=== PATIENT | male | born 1965 | race Hispanic/Latino ===

== ENCOUNTER 2021-01-02 17:29 | Inpatient (IN) | payer SELFPAY ==
[2021-01-02] MEDS ORDERED: ACETAMINOPHEN 500 MG TAB ONE (19:37)
[2021-01-02] MEDS ORDERED: ONDANSETRON 4 MG/2 ML VIAL ONE (20:53)
[2021-01-02] MEDS ORDERED: PIPER/TAZO/NS 3.375gm 3.375 GM/100 ML BAG ONE (20:53)
[2021-01-02] MEDS ORDERED: NA CHLORIDE 0.9% 1,000 ML ONE (20:53)
[2021-01-02 21:06] LABS: Absolute Lymphocytes (CBC) 1.3 K/uL (0.7-4.9); Basophils % 0.4 % (0-1.3); Hematocrit 41.9 % (39.6-49.0); Lymphocytes % 7.4 % (15.3-44.8); MPV 9.2 fL (7.6-11.3); RBC Red Blood Cell Count 4.53 M/uL (4.33-5.43)
[2021-01-02 21:09] LABS: Protime INR 1.37
--- NOTE | 2021-01-02 21:20 | RAD REPORT ---
EXAM DESCRIPTION: RAD - Chest Single View - 01/02/2021 9:12 pm CLINICAL HISTORY: FEVER COMPARISON: No comparisons FINDINGS: No evidence of edema or pneumonia. The heart size is within normal limits.No acute osseous abnormality. No significant pleural effusions or pneumothorax. IMPRESSION: No acute cardiopulmonary disease.
[2021-01-02 21:21] LABS: Albumin 3.5 g/dL (3.4-5.0); Bilirubin Direct 0.3 mg/dL (0-0.2); Bilirubin Total 1.3 mg/dL (0.2-1.0); Potassium 3.9 mmol/L (3.5-5.1); Protein, Total 7.8 g/dL (6.4-8.2)
--- NOTE | 2021-01-02 21:51 | RAD REPORT ---
EXAM DESCRIPTION: US - Abdomen Exam Limited - 01/02/2021 9:32 pm CLINICAL HISTORY: ABD PAIN COMPARISON: No comparisons FINDINGS: There is a gallstone near the gallbladder neck. No gallbladder wall thickening is identifi ed. No pericholecystic fluid. There is some mild fatty sparing along the gallbladder fossa. Negative sonographic Deleon's sign. No biliary ductal dilatation. IMPRESSION: Cholelithiasis but no sonographic evidence of acute cholecystitis.
--- NOTE | 2021-01-02 22:10 | ER ---
Nurse's Notes [facility] Name: Rony Huggins Age: 55 yrs Sex: Male : 1965 Arrival Date: 01/02/2021 Time: 17:35 Bed External Waiting Private MD: Diagnosis: Calculus of gallbladder with acute cholecystitis without obstruction Presentation: 01/02 19:16 Chief complaint: Patient states: he was seen at [place] yesterday and diagnosed with bb kidney stones told to go to the ED if symptoms worsen and the pain has worsened. Coronavirus screen: At this time, the client does not indicate any symptoms associated with coronavirus-19. Ebola Screen: No symptoms or risks identified at this time. Initial Sepsis Screen: Does the patient meet any 2 criteria? No. Patient's initial sepsis screen is negative. Does the patient have a suspected source of infection? No. Patient's initial sepsis screen is negative. Risk Assessment: Do you want to hurt yourself or someone else? Patient reports no desire to harm self or others. Onset of symptoms was January 02, 2021. 19:16 Method Of Arrival: Ambulatory bb 19:16 Acuity: ALPA 3 bb Historical: - Allergies: 19:18 No Known Allergies; bb - Immunization history:: Adult Immunizations unknown. - Social history:: Smoking status: unknown. Screenin/10 00:00 Abuse screen: Denies threats or abuse. Nutritional screening: No deficits noted. em Tuberculosis screening: No symptoms or risk factors identified. Fall Risk None identified. Assessment: 01/02 20:08 General: Appears in no apparent distress. uncomfortable, Behavior is calm, cooperative. vg1 Pain: Complains of pain in epigastric area and right upper quadrant Pain currently is 7 out of 10 on a pain scale. Noted to be grimacing, guarding. Neuro: Level of Consciousness is awake, alert, obeys commands, Oriented to person, place, time, situation. Cardiovascular: Patient's skin is warm and dry. Respiratory: Airway is patent Respiratory effort is even, unlabored. GI: Bowel sounds present X 4 quads. Abdomen is tender to palpation in epigastric area and right upper quadrant Patient currently denies nausea, vomiting. : No signs and/or symptoms were reported regarding the genitourinary system. EENT: No signs and/or symptoms were reported regarding the EENT system. Derm: Skin is intact, is healthy with good turgor. Musculoskeletal: Circulation, motion, and sensation intact. 21:14 Reassessment: US at bedside. vg1 22:09 Reassessment: Patient appears in no apparent distress at this time. No changes from vg1 previously documented assessment. Patient and/or family updated on plan of care and expected duration. Pain level reassessed. Patient is alert, oriented x 3, equal unlabored respirations, skin warm/dry/pink. 01/03 00:00 Reassessment: Patient appears in no apparent distress at this time. Patient and/or jb4 family updated on plan of care and expected duration. Pain level reassessed. Patient is alert, oriented x 3, equal unlabored respirations, skin warm/dry/pink. Vital Signs: 01/02 19:16 BP 142 / 88; Pulse 104; Resp 18 S; Temp 101.1(O); Pulse Ox 98% on R/A; Weight 90.72 kg bb (R); Height 5 ft. 7 in. (170.18 cm) (R); Pain 10/10; 20:13 BP 126 / 84; Pulse 103; Resp 16; Pulse Ox 98% ; vg1 20:58 BP 114 / 77; Pulse 93; Resp 93; Temp 99.8; Pulse Ox 98% ; vg1 19:16 Body Mass Index 31.32 (90.72 kg, 170.18 cm) bb ED Course: 17:35 Patient arrived in ED. mr 19:18 Triage completed. bb 19:18 Arm band placed on Patient placed in waiting room, Patient notified of wait time. bb Antipyretics given from triage as ordered by an ER provider. Family accompanied patient. 19:46 Francisco Javier Jolley PA is PHCP. cp 19:46 Francisco Javier Chapman MD is Attending Physician. cp 19:52 Elsa Burr RN is Primary Nurse. vg1 20:49 Inserted saline lock: 20 gauge in right antecubital area, using aseptic technique. vg1 Blood collected. 20:49 Initial lab(s) drawn, by ks, sent to lab. First set of blood cultures drawn by me. vg1 21:04 COVID swab sent to lab. vg1 21:05 Second set of blood cultures drawn by me. vg1 21:11 XRAY Chest (1 view) In Process Unspecified. EDMS 21:32 US Abdomen Limited: RUQ/epigastric In Process Unspecified. EDMS 22:08 Steven Cross MD is Hospitalizing Provider. cp 22:10 Report given to Rasheeda RIVERA. vg1 01/03 00:00 Patient has correct armband on for positive identification. Bed in low position. Call jb4 light in reach. Side rails up X 1. 01:14 No provider procedures requiring assistance completed. Patient transferred, IV remains em in place. Administered Medications: 01/02 19:16 Drug: Tylenol 1000 mg Route: PO; bb 22:10 Follow up: Response: No adverse reaction; Temperature is decreased vg1 21:00 Drug: NS 0.9% 1000 ml Route: IV; Rate: 1 bolus; Site: right antecubital; vg1 22:10 Follow up: IV Status: Completed infusion; IV Intake: 1000ml vg1 21:01 Drug: Zofran (Ondansetron) 4 mg Route: IVP; Site: right antecubital; vg1 22:10 Follow up: Response: No adverse reaction vg1 21:07 Drug: Zosyn (piperacillin-tazobactam) 3.375 grams Route: IVPB; Infused Over: 60 mins; vg1 Site: right antecubital; 22:10 Follow up: IV Status: Completed infusion; IV Intake: 100ml vg1 01/03 00:01 Drug: morphine 4 mg Route: IVP; Site: right antecubital; em Intake: 01/02 22:10 IV: 1000ml; Total: 1000ml. vg1 22:10 IV: 100ml; Total: 1100ml. vg1 Outcome: 22:09 Decision to Hospitalize by Provider. cp 01/03 00:00 Admitted to ER Hold. Please see [facility] for further documentation. jb4 Condition: stable Discharge instructions given to patient, Instructed on the need for admit, Demonstrated understanding of instructions. 17:11 Patient left the ED. iw Signatures: Dispatcher [employer] SHAYNE TavoAniya mr AnnLeoncio, RN RN Zainab Sharif, RN NICOLE bb Nicole Yousif RN RN iw Francisco Javier Jolley PA PA cp Tristian Rider RN RN jb4 Elsa Burr RN RN vg1
--- NOTE | 2021-01-02 22:10 | EDPHYS ---
Physician Documentation [facility] Name: Rony Huggins Age: 55 yrs Sex: Male : 1965 Arrival Date: 01/02/2021 Time: 17:35 Bed External Waiting Private MD: ZULEMA Physician Francisco Javier Chapman HPI: 01/02 20:05 This 55 yrs old Male presents to ER via Ambulatory with complaints of cp Abdominal Pain. 20:05 The patient presents with right side abdomen. Onset: The symptoms/episode cp began/occurred yesterday. The symptoms do not radiate. Associated signs and symptoms: Pertinent negatives: constipation, diarrhea, testicular pain, vomiting. The patient has been recently seen by a physician: in [place], yesterday, with similar presenting complaints, and apparently given a diagnosis of cholelithiasis, lab tests were done, an ultrasound was done, CT scan was done. Historical: - Allergies: 19:18 No Known Allergies; bb - Immunization history:: Adult Immunizations unknown. - Social history:: Smoking status: unknown. ROS: 20:06 Eyes: Negative for injury, pain, redness, and discharge. cp 20:06 Constitutional: Negative for body aches, chills, fever, poor PO intake. 20:06 ENT: Negative for ear pain, sore throat, difficulty swallowing, difficulty handling secretions. 20:06 Cardiovascular: Negative for chest pain. 20:06 Respiratory: Negative for cough, shortness of breath, wheezing. 20:06 Abdomen/GI: Positive for abdominal pain, Negative for vomiting, diarrhea, constipation. 20:06 Skin: Negative for rash. 20:06 Neuro: Negative for altered mental status, headache, weakness. 20:06 All other systems are negative. Exam: 20:07 Constitutional: The patient appears in no acute distress, alert, awake, cp non-diaphoretic, non-toxic, well developed, well nourished. 20:07 Head/Face: Normocephalic, atraumatic. cp 20:07 Eyes: Periorbital structures: appear normal, Conjunctiva: normal, no exudate, no cp injection, Sclera: no appreciated abnormality, Lids and lashes: appear normal, bilaterally. 20:07 ENT: External ear(s): are unremarkable, Nose: is normal, Mouth: Lips: moist, Oral mucosa: pink and intact, moist, Posterior pharynx: Airway: no evidence of obstruction, patent. 20:07 Neck: ROM/movement: is normal, is supple, without pain, no range of motions limitations. 20:07 Chest/axilla: Inspection: normal, Palpation: is normal, no crepitus, no tenderness. 20:07 Cardiovascular: Rate: tachycardic, Rhythm: regular, Heart sounds: murmur, not appreciated, Edema: is not appreciated. 20:07 Respiratory: the patient does not display signs of respiratory distress, Respirations: normal, no use of accessory muscles, no retractions, labored breathing, is not present, Breath sounds: are clear throughout, no decreased breath sounds, no stridor, no wheezing. 20:07 Abdomen/GI: Inspection: abdomen appears normal, Bowel sounds: active, all quadrants, Palpation: soft, in all quadrants, severe abdominal tenderness, in the right upper quadrant, voluntary guarding, is elicited in the right upper quadrant. 20:07 Back: pain, that is moderate, of the mid back area, ROM is painful, with all movement. 20:07 Skin: no rash present. 20:07 Neuro: Orientation: to person, place \T\ time. Mentation: is normal, Motor: moves all fours, strength is normal. Vital Signs: 19:16 BP 142 / 88; Pulse 104; Resp 18 S; Temp 101.1(O); Pulse Ox 98% on R/A; Weight 90.72 kg bb (R); Height 5 ft. 7 in. (170.18 cm) (R); Pain 10/10; 20:13 BP 126 / 84; Pulse 103; Resp 16; Pulse Ox 98% ; vg1 20:58 BP 114 / 77; Pulse 93; Resp 93; Temp 99.8; Pulse Ox 98% ; vg1 19:16 Body Mass Index 31.32 (90.72 kg, 170.18 cm) bb MDM: 19:47 Patient medically screened. cp 21:00 Differential diagnosis: cholecystitis, Cholelithiasis, pancreatitis, Peptic Ulcer cp Disease, Perf. Duodenal Ulcer, Perf. Gastric Ulcer, Ureterolithiasis, urinary tract infection, sepsis. 22:00 Physician consultation: Steven Cross MD was called at 22:00, was contacted at 22:00, cp regarding admission, to the medical/surgical unit. patient's condition, would like medications started, Zosyn. 22:00 Data reviewed: vital signs, nurses notes, lab test result(s), radiologic studies, cp ultrasound, I have discussed the patient's presentation/case with the attending Emergency Department Physician; and as a result, I will admit patient. 01/02 20:14 Order name: Basic Metabolic Panel 01/02 20:14 Order name: CBC with Diff 01/02 20:14 Order name: Hepatic Function cp 01/02 20:14 Order name: Lipase cp 01/02 20:14 Order name: Lactate; Complete Time: 21:22 cp 01/02 20:14 Order name: PT-INR; Complete Time: 21:52 cp 01/02 20:14 Order name: Ptt, Activated; Complete Time: 21:52 cp 01/02 20:14 Order name: Urine Microscopic Only cp 01/02 20:14 Order name: Procalcitonin; Complete Time: 21:52 cp 01/02 20:14 Order name: Blood Culture Adult (2) 01/02 20:15 Order name: Basic Metabolic Panel; Complete Time: 21:22 EDOK 01/02 21:22 Interpretation: Normal except: BUN 21; GFR 75. 01/02 20:15 Order name: CBC with Automated Diff EDOK 01/02 21:25 Interpretation: WBC 17.50; JOVITA% 86.3; LYM% 7.4; NEUT A 15.1. 01/02 20:15 Order name: Liver (Hepatic) Function; Complete Time: 21:22 EDOK 01/02 21:22 Interpretation: Normal except: BILIT 1.3; BILID 0.3; GLOB 4.3; A/G 0.8. 01/02 20:14 Order name: US Abdomen Limited: RUQ/epigastric; Complete Time: 21:52 cp 01/02 20:15 Order name: Lipase; Complete Time: 21:22 EDMS 01/02 20:36 Order name: XRAY Chest (1 view); Complete Time: 21:22 cp 01/02 21:08 Order name: Manual Differential EDOK 01/02 23:02 Order name: SARS-COV-2 RT PCR EDMS 01/02 23:04 Order name: Basic Metabolic Panel EDMS 01/02 23:04 Order name: Basic Metabolic Panel EDMS 01/02 23:04 Order name: Lipase EDMS 01/02 23:04 Order name: Lipase EDMS 01/02 23:04 Order name: Liver (Hepatic) Function EDMS 01/02 23:04 Order name: CBC with Automated Diff EDMS 01/02 23:04 Order name: CBC with Automated Diff EDMS 01/02 23:04 Order name: Liver (Hepatic) Function EDMS 01/03 16:08 Order name: Glucose, Ancillary Testing EDMS 01/02 20:14 Order name: IV Saline Lock; Complete Time: 20:56 cp 01/02 20:14 Order name: Labs collected and sent; Complete Time: 20:56 cp 01/02 20:14 Order name: NPO; Complete Time: 20:23 cp 01/02 20:36 Order name: EKG; Complete Time: 20:36 cp 01/02 20:36 Order name: EKG - Nurse/Tech cp 01/02 23:04 Order name: NPO EDMS Administered Medications: 19:16 Drug: Tylenol 1000 mg Route: PO; bb 22:10 Follow up: Response: No adverse reaction; Temperature is decreased vg1 21:00 Drug: NS 0.9% 1000 ml Route: IV; Rate: 1 bolus; Site: right antecubital; vg1 22:10 Follow up: IV Status: Completed infusion; IV Intake: 1000ml vg1 21:01 Drug: Zofran (Ondansetron) 4 mg Route: IVP; Site: right antecubital; vg1 22:10 Follow up: Response: No adverse reaction vg1 21:07 Drug: Zosyn (piperacillin-tazobactam) 3.375 grams Route: IVPB; Infused Over: 60 mins; vg1 Site: right antecubital; 22:10 Follow up: IV Status: Completed infusion; IV Intake: 100ml vg1 01/03 00:01 Drug: morphine 4 mg Route: IVP; Site: right antecubital; em Disposition: 01/04 07:50 Co-signature as Attending Physician, Francisco Javier Chapman MD I agree with the assessment and codi plan of care. Disposition Summary: 01/02/21 22:09 Hospitalization Ordered Hospitalization Status: Inpatient Admission cp Provider: Steven Cross cp Condition: Stable cp Problem: new cp Symptoms: have improved cp Bed/Room Type: Standard cp Location: [facility] ER HOLD(01/03/21 00:19) cg Room Assignment: ERHOLD-(01/03/21 00:19) cg Diagnosis - Calculus of gallbladder with acute cholecystitis without obstruction cp Forms: - Medication Reconciliation Form cp - SBAR form cp Signatures: Dispatcher [employer] EDFrancisco Javier Lopez MD MD cha Munoz, Edgar, RN RN Zainab Guerra RN RN Francisco Javier Pearl PA PA Lauren Burr RN RN Elsa Burr RN RN vg1 Corrections: (The following items were deleted from the chart) 01/02 22:02 20:15 CORONAVIRUS+MR.LAB.BRZ ordered. [facility] 01/03 00:19 01/02 22:09 Telemetry/MedSurg (Inpatient) [facility] 01/03 00:19 01/02 22:09 cp cg
[2021-01-02 22:24] LABS: Blood Morphology Comment NOT SEEN (NOT SEEN); Platelet Estimate ADEQ
[2021-01-02] MEDS ORDERED: ACETAMINOPHEN 500 MG TAB PO PRN (22:52)
[2021-01-02] MEDS ORDERED: MORPHINE 4 MG/ML SYR IV PRN (22:52)
[2021-01-02] MEDS ORDERED: ONDANSETRON 4 MG/2 ML VIAL IV PRN (22:52)
[2021-01-03] MEDS ORDERED: MORPHINE 2 MG/ML SYR ONE (00:21)
[2021-01-03 01:37] VITALS: BMI 31.3
[2021-01-03] MEDS ORDERED: PIPER/TAZO/NS 3.375gm 3.375 GM/100 ML BAG IVPB SCH (03:00)
[2021-01-03] MEDS ORDERED: NA CHLORIDE 0.9% 250 ML ONE (04:07)
[2021-01-03] MEDS ORDERED: PIPERACIL/TAZO 3.375 GM VIAL IV ONE (04:07)
[2021-01-03 05:32] LABS: Absolute Lymphocytes (CBC) 1.2 K/uL (0.7-4.9); Basophils % 0.5 % (0-1.3); Hematocrit 38.3 % (39.6-49.0); Lymphocytes % 7.3 % (15.3-44.8); MPV 9.3 fL (7.6-11.3); RBC Red Blood Cell Count 4.14 M/uL (4.33-5.43)
[2021-01-03 05:59] LABS: Bilirubin Direct 0.3 mg/dL (0-0.2); Bilirubin Total 1.3 mg/dL (0.2-1.0); Potassium 3.8 mmol/L (3.5-5.1); Protein, Total 7.1 g/dL (6.4-8.2)
[2021-01-03] MEDS: PIPER/TAZO/NS 3.375gm 3.375 GM/100 ML BAG IVPB SCH ×2 (10:14→17:00)
[2021-01-03] MEDS: Ringers Lactate 1,000 ML IV ONE (10:25)
[2021-01-03] MEDS ORDERED: PIPER/TAZO/NS 3.375gm 3.375 GM/100 ML BAG ONE (10:35)
[2021-01-03] MEDS ORDERED: LIDOCAINE 2% MPF 5 ML VIAL ONE (12:04)
[2021-01-03] MEDS ORDERED: propofoL 200 MG/20 ML VIAL IV ONE (12:04)
[2021-01-03] MEDS ORDERED: MIDAZOLAM HCL 2 MG/2 ML INJ ONE (12:04)
[2021-01-03] MEDS ORDERED: FENTANYL CITR 100 MCG/2 ML ONE (12:04)
[2021-01-03] MEDS ORDERED: BUPIVACAINE 0.25% PF 30 ML VIAL ONE (12:06)
[2021-01-03] MEDS ORDERED: ROCURONIUM 50 MG/5 ML VIAL IV ONE (12:08)
[2021-01-03] MEDS ORDERED: Ringers Lactate 1,000 ML IV ONE ×2 (13:01→14:26)
[2021-01-03] MEDS ORDERED: NS 0.9% VIAL 10 ML ONE (13:05)
[2021-01-03] MEDS ORDERED: Phenylephrine HCl 10 MG/ML 1 ML VIAL ONE (13:05)
--- NOTE | 2021-01-03 13:20 | P.OP ---
Preoperative diagnosis: Acute Calculous Cholecystitis Postoperative diagnosis: Acute Calculous Cholecystitis Primary procedure: Laparoscopic Cholecystectomy Secondary procedure: ICG cholangiography Anesthesia: GETA Local Estimated blood loss: <10cc Specimen: gallbladder Findings: distended GB, Purulent Bile, Gangrenous changes to neck, short cystic duct Complications: None Transferred to: Recovery Room Condition: Good
[2021-01-03] MEDS ORDERED: HYDROCODONE/APAP 7.5/325 MG TAB PO PRN (13:27)
[2021-01-03] MEDS ORDERED: NEOSTIGMINE 1 MG/ML -5 ML ONE (13:40)
[2021-01-03] MEDS ORDERED: GLYCOPYRROLATE 0.2 MG/ML SYR ONE (13:43)
[2021-01-03] MEDS ORDERED: KETOROLAC 30 MG/ML INJ ONE (13:43)
[2021-01-03] MEDS ORDERED: dexAMETHasone 10 MG/ML VIAL ONE (13:43)
[2021-01-03] MEDS ORDERED: ONDANSETRON 4 MG/2 ML VIAL ONE (13:55)
[2021-01-03] MEDS: Ringers Lactate 1,000 ML IV SCH (14:00)
[2021-01-03] MEDS: INSULIN -REGULAR HUMAN 50 UNIT/0.5 ML ML SQ SCH ×2 (16:19→20:08)
[2021-01-03] MEDS: HEPARIN 5000 UNIT/ML 1 ML VIAL SQ SCH (16:28)
--- NOTE | 2021-01-03 17:32 | OP ---
Date of Procedure: 01/03/2021 Surgeon: Steven Cross MD, Preoperative Diagnosis: Acute calculous cholecystitis. Postoperative Diagnosis: Acute calculous cholecystitis. Procedure: 1.Laparoscopic cholecystectomy. 2.ICG cholangiography. Anesthesia: General endotracheal plus local with 0.25% Marcaine. Estimated Blood Loss: Less than 10 mL. Specimen: Gallbladder. Findings: 1.Distended gallbladder. 2.Purulent bile with obvious pus intraluminally. 3.Gangrenous change in the neck of the gallbladder. 4.Short cystic duct. Complications: None. Disposition: The patient was transferred to recovery room in good condition. Procedure In Detail: After informed consent was obtained, the patient was brought to the operating r oom, prepped and draped in the usual sterile fashion after adequate anesthesia was achieved and supra umbilical area was anesthetized with 0.25% Marcaine, sharply incised. A 5 mm 0-degree optical trocar was introduced into the abdomen without evidence of complication. Insufflation was obtained to 15 m mHg at this time. There was no injury to vital structure upon entry into the abdomen. Three additio nal trocars were placed, 1 in the epigastrium and 2 in the right upper quadrant. All of these were 5 mm trocars, placed under direct visualization without evidence of complication. The umbilical troca r was then up-sized to a 12 mm under direct visualization without evidence of complication. The danna ent was positioned head up right-side up position. Ratcheted graspers were used to grasp the patient 's gallbladder after removing the omentum from the anterior surface of the gallbladder, which was enc asing the gallbladder at this point. Gangrenous changes were noted to the gallbladder. The gallblad chris was difficult to grasp at this point. A decompression needle was brought to the field and used t o decompress the fundus of the gallbladder. Purulent bile was emanating from the gallbladder at this point. A stone was noted in the neck of the gallbladder also. This was milked back to the distal a spect of the gallbladder. The gallbladder was then placed toward the patient's right shoulder. The patient was positioned in head up right-side up position. Ratcheted graspers continued to dissect do wn the David pouch of the gallbladder. Significant thick inflammatory rind was found on the anter ior surface of the gallbladder and dissection continued down to expose. Two structures were identifi ed in the cystic duct and cystic artery. ICG cholangiography was performed at this point to confirm position of the common duct, cystic duct junction. Cystic duct was found to be short at this point. After these 2 structures were skeletonized we identified both the cystic duct and cystic artery. Th e double titanium clips were placed doubly on the proximal side and singly on the distal side of both cystic duct and cystic artery. These structures were then ligated using Endo Shalini. The gallbladd er was then removed from the hepatic fossa without evidence of complication using electrocautery. Th e gallbladder was then placed in EndoCatch bag, removed the umbilical trocar. The area was then copi ously irrigated and suctioned out until completely dry. No bleeding and hemostatic maneuvers were re quired beyond a fulguration of small points of bleeding at the hepatic fossa and these were easily co ntrolled with electrocautery. After this was completed, the area was irrigated once again. Clips we re found to be in good anatomic position. The patient was positioned back in neutral position. The remaining effluent was suctioned out. The umbilical trocar site was then closed using a Adi cramer suture passer with 0 Vicryl in a running fashion with good approximation of tissues. The remaini ng trocars were removed after the abdomen was completely desufflated under direct visualization witho ut evidence of complication. All skin incisions were then copiously irrigated and closed with interr upted roberth. The patient tolerated the procedure well without evidence of complications and transferred to PACU in good condition. All counts were co rrect at the end of the case. COURTNEY/LIZETH Voice ID: [id number] Report ID: [id number]
--- NOTE | 2021-01-03 17:32 | HP ---
Date of Admission: 01/02/2021 Brief History Of Present Illness: The patient is a 55-year-old male, who presented to the [facility] after being seen at [facility] yesterday with similar complaints. He had been diagnosed with chol elithiasis and was sent here ultimately with worsening abdominal pain in the right upper quadrant wit h radiation through to his back and epigastrium. It is not associated with nausea, vomiting. No codi nge in bowel or bladder habits. His previous episode was earlier this last week. He has not had sim ilar episodes before in the past and currently still has pain in the right upper quadrant similar to previous without significant improvement. Past Medical History: Denies. Past Surgical History: Denies. Allergies: NO KNOWN DRUG ALLERGIES. Medications: None. Social History: He denies smoking, alcohol, or recreational drug use. Review of Systems: Ten-point review of systems other than HPI, denies. Physical Examination: Vital Signs: At the time of my examination; his BMI is 31.3. His blood pressure 98/79, pulse 79, re spiratory rate 19, temperature was 99.0, oxygen saturation 100% on room air. General: He is awake, alert, and oriented. Psychiatric: Appropriate, conversive. HEENT: He is normocephalic. Sclerae anicteric. Mucous membranes are moist. Oropharynx clear. Neck: Supple without JVD. Chest: Normal expansion and excursion. Cardiovascular: Regular rate and rhythm. Pulmonary: Clear to auscultation bilaterally. Abdomen: Soft with positive right upper quadrant tenderness to palpation. Positive rebound. Positi ve guarding. Positive Deleon sign. Extremities: No clubbing, cyanosis, or edema. Skin: Warm and dry. Laboratory Data: Reveals a white blood cell count of 16.6, hemoglobin 13.0, hematocrit 38.3, platele t count was 187. His neutrophils 86%. His PT 15.8, INR 1.37, PTT is 27.3. His sodium 138, potassiu m 3.8, chloride 105, carbon dioxide 30, BUN 17, creatinine 0.9, glucose 98. His lactic acid was 0.9. Total bilirubin of 1.3, direct bilirubin 0.3, AST 19, ALT 31, alkaline phosphatase is normal at 81. His procalcitonin is 1.4. His lipase is 143. He had imaging performed, which included an abdomina l ultrasound, officially read as cholelithiasis, but no sonographic evidence of acute cholecystitis. Assessment And Plan: This is a 55-year-old male, who comes in with signs and symptoms of possible ac alculous cholecystitis with gallstones near the neck of the gallbladder. I have interviewed the patient with route salesperson present. I have explained the risks, benefit s, and alternatives of laparoscopic possible open cholecystectomy including, but not limited to bleed ing, infection, damage to surrounding tissues, injury to bile ducts and intestines, need for further operations, continued antibiotics, IV fluid hydration. The patient agrees to proceed as indicated. COURTNEY/LIZETH Voice ID: [id number]
[2021-01-04] MEDS: Ringers Lactate 1,000 ML IV SCH
[2021-01-04] MEDS: HEPARIN 5000 UNIT/ML 1 ML VIAL SQ SCH (01:00)
[2021-01-04] MEDS: PIPER/TAZO/NS 3.375gm 3.375 GM/100 ML BAG IVPB SCH (01:01)
[2021-01-04 03:41] VITALS: O2SAT 96
[2021-01-04 05:38] LABS: Absolute Lymphocytes (CBC) 0.8 K/uL (0.7-4.9); Basophils % 0.1 % (0-1.3); Hematocrit 34.8 % (39.6-49.0); Lymphocytes % 7.3 % (15.3-44.8); MPV 9.4 fL (7.6-11.3); RBC Red Blood Cell Count 3.78 M/uL (4.33-5.43)
[2021-01-04 05:51] LABS: ALT/SGPT 55 U/L (12-78); AST/SGOT 42 U/L (15-37); Albumin 2.7 g/dL (3.4-5.0); Alkaline Phosphatase 95 U/L (45-117); BUN Blood Urea Nitrogen 17 mg/dL (7-18); Bicarbonate 26 mmol/L (21-32); Bilirubin Total 0.6 mg/dL (0.2-1.0); Glucose Level 132 mg/dL (74-106); Potassium 3.9 mmol/L (3.5-5.1); Protein, Total 6.7 g/dL (6.4-8.2); Sodium Level 138 mmol/L (136-145)
[2021-01-04] MEDS: INSULIN -REGULAR HUMAN 50 UNIT/0.5 ML ML SQ SCH (07:30)
--- NOTE | 2021-01-04 09:14 | P.DS ---
Admission Date: 01/02/21 Discharge Date: 01/04/21 Disposition: ROUTINE DISCHARGE Discharge Condition: GOOD Procedures: Laparoscopic Cholecystectomy - Problems (1) Cholecystitis with cholelithiasis Current Visit: Yes Status: Acute Brief History of Present Illness: Patient is a 55 year old man who presented with acute cholecystitis Hospital Course: Patient had laparoscopic cholecystectomy, did well post op, discharged home Vital Signs/Physical Exam: Temp Pulse Resp BP Pulse Ox 99.0 F 69 16 125/68 97 01/04/21 04:00 01/04/21 04:00 01/04/21 04:00 01/04/21 04:00 01/04/21 04:00 General: Alert, In no apparent distress, Cooperative HEENT: Mucous membr. moist/pink Respiratory: Clear to auscultation bilaterally Cardiovascular: Regular rate/rhythm Gastrointestinal: Other (soft, mild appropriate TTP, ND, incisions clean and dry) Laboratory Data at Discharge: WBC 10.40 K/uL (4.3-10.9) D 01/04/21 05:06 Hgb 12.0 g/dL (13.6-17.9) L 01/04/21 05:06 Hct 34.8 % (39.6-49.0) L 01/04/21 05:06 Plt Count 182 K/uL (152-406) 01/04/21 05:06 PT 15.8 SECONDS (9.5-12.5) H 01/02/21 20:49 INR 1.37 01/02/21 20:49 APTT 27.3 SECONDS (24.3-36.9) 01/02/21 20:49 Sodium 138 mmol/L (136-145) 01/04/21 05:06 Potassium 3.9 mmol/L (3.5-5.1) 01/04/21 05:06 BUN 17 mg/dL (7-18) 01/04/21 05:06 Creatinine 0.76 mg/dL (0.55-1.3) 01/04/21 05:06 Glucose 132 mg/dL (74-106) H 01/04/21 05:06 Total Bilirubin 0.6 mg/dL (0.2-1.0) 01/04/21 05:06 AST 42 U/L (15-37) H 01/04/21 05:06 ALT 55 U/L (12-78) 01/04/21 05:06 Alkaline Phosphatase 95 U/L (45-117) 01/04/21 05:06 Lipase 143 U/L (73-393) 01/03/21 05:17 Home Medications: NK [No Home Meds] 01/03/21 Physician Discharge Instructions: PROBLEM: (list out Acute Problems for the Current visit) GOAL: Clear understanding of disease process INSTRUCTIONS: OK TO DC IV AND DISCHARGE HOME DR FLORES CALLED YOUR PRESCRIPTION FOR NORCO 5/325MG TO [facility]. IF YOU HAVE ANY QUESTIONS REGARDING YOUR HOSPITAL STAY CALL [phone] FLORES DIRECTED Diet: [place] Activity: No lifting more than 10 lbs IMMUNIZATION Influenza Vaccine Indicated: Influenza Vaccine Given: Date Given: Pneumonia Vaccine Indicated: No Pneumonia Vaccine Given: Date Given: Diet: [place] Activity: No lifting more than 10 lbs Followup: Steven Flores MD [ACTIVE - CAN ADMIT] - NONE,NONE [Primary Care Provider] -
[2021-01-04 09:15] VITALS: BP 159/83; TEMP 98
== END 2021-01-04 10:03 | disposition home or self-care (01) | DRG 419 ==
LOC: ER 17:29 → ERHOLD 23:03 → 2ND 01-03 14:40
PROVIDERS: ADMIT Surgery; ATTEND Surgery
PROC: BF50200 Other Imaging of Bile Ducts using Fluorescing Agent, Indocyanine Green Dye, Intraoperative (ICD-10-PCS; 2021-01-03)
PROC: 0FT44ZZ Resection of Gallbladder, Percutaneous Endoscopic Approach (ICD-10-PCS; principal; 2021-01-03 10:30)
DX: K80.00 Calculus of gallbladder with acute cholecystitis without obstruction (principal); K82.A1 Gangrene of gallbladder in cholecystitis; Z20.822 Contact with and (suspected) exposure to COVID-19
CPT/HCPCS: 36415; 71045; 76705; 80048; 80053; 80076; 82947; 83605; 83690; 84145; 85025; 85610; 85730; 87040; 88304; 94010; 96365; 96375; 99285; J1100; J1644; J2250; J2270; J2370; J2405; J2543; J2704; J2710; J3010; J7030; J7050; J7120; U0003